=== PATIENT | male | born 1980 | race African-American/Black ===

== ENCOUNTER 2023-06-25 07:51 | Emergency (ER) | payer MEDICAID ==
[~2023-06-25] VITALS: Ht 190.5 cm; Wt 88.0 kg
[2023-06-25 07:54] VITALS: BP 129/85; PULSE 70; RESP 16; TEMP 100.8; O2SAT 97
[2023-06-25 08:31] LABS: STREP A SCREEN POSITIVE (Neg)
[2023-06-25] MEDS ORDERED: ibuprofen 200mg tablet PO ONE (08:45)
[2023-06-25] MEDS ORDERED: penicillin G benzathine 1.2 million unit/2ml syringe IM ONE (08:45)
[2023-06-25] MEDS ORDERED: predniSONE 20 mg tablet PO ONE (08:45)
[2023-06-25] MEDS ORDERED: PENI500T2 PO (08:51)
== END 2023-06-25 09:08 | disposition home or self-care (01) ==
LOC: ER 07:51
DX: J02.0 Streptococcal pharyngitis (principal)
CPT/HCPCS: 87880; 99283; J7512